=== PATIENT | male | born 1945 | race African-American/Black ===

== ENCOUNTER 2016-08-19 18:49 | Emergency (ER) | payer MEDICARE, OTHER ==
[~2016-08-19] VITALS: Ht 182.9 cm; Wt 78.0 kg
[~2016-08-19 18:49] MED LIST: ASPI-1159 PO; BUSP5TAB3 PO; CHOL500010 PO; CLON0.5T4 PO; FINA5TAB11 PO; GABA-531 PO; GADOBENATE DIMEGLUMINE 529 MG/ML 10ML IV ONE; IOHEXOL-300 100 ML BOTTLE ONE; LISI-604 PO; NAPR-679 PO; POTA10CA42 PO; PRAZ2CAP2 PO; SIMV20TA6 PO; SODIUM CHLORIDE 0.9% 10ML VIAL ONE
[2016-08-19] MEDS ORDERED: SODIUM CHLORIDE 0.9% 1,000 ML IV ONE (19:56)
[2016-08-19] MEDS ORDERED: ONDANSETRON HCL 4MG/2ML VIAL IV STA (19:56)
[2016-08-19] MEDS ORDERED: MORPHINE SULFATE 4 MG/ML CPJ (NOT FOR IM USE) IV STA (19:56)
[2016-08-19 20:28] LABS: BASOPHILS % 1.1 % (0.0-2.0); CARBON DIOXIDE 33 mEq/L (21-32); CHLORIDE 105 mEq/L (98-107); EOSINOPHILS % 2.4 % (0.0-5.0); HEMATOCRIT. 43.2 % (42.0-52.0); HEMOGLOBIN. 14.8 g/dL (14.0-18.0); MEAN CORPUSCULAR HEMOGLOBIN 33.7 pg (28.0-32.0); MEAN CORPUSCULAR VOLUME 98.1 fL (80.0-94.0); MEAN PLATELET VOLUME 7.5 fl (7.4-10.4); MONOCYTES % 8.9 % (2.0-8.0); NEUTROPHILS % 61.6 % (40.0-76.0); PLATELET 192 x1000/uL (130-400); RED CELL DISTRIBUTION WIDTH 13.3 % (11.6-14.6)
[2016-08-19 20:31] LABS: INR 1.1; PROTHROMBIN TIME 10.9 sec
[2016-08-19 21:08] LABS: CLARITY URINE CLEAR (CLEAR); COLOR URINE YELLOW (YELLOW); GLUCOSE URINE NEGATIVE (NEGATIVE); KETONES URINE TRACE (NEGATIVE); LEUKOCYTE ESTERASE URINE 2+ (NEGATIVE); NITRITE URINE NEGATIVE (NEGATIVE); OCCULT BLOOD URINE TRACE (NEGATIVE); PH URINE 6.5 (4.5-8.0); PROTEIN URINE TRACE (NEGATIVE); SPECIFIC GRAVITY URINE 1.027 (1.005-1.030)
[2016-08-19 22:45] VITALS: BP 166/101
[2016-08-19] MEDS ORDERED: POTASSIUM CHLORIDE INJ 40 MEQ in DEXT 5% WATER 250 ML IV SCH (23:30)
[2016-08-19] MEDS ORDERED: POTASSIUM CHLORIDE 20MEQ TABLET SR PO ONE (23:30)
== END 2016-08-20 00:17 | disposition home or self-care (01) ==
LOC: ER 19:57
DX: N39.0 Urinary tract infection, site not specified (principal); K56.7 Ileus, unspecified; I10 Essential (primary) hypertension; I51.9 Heart disease, unspecified; Z79.82 Long term (current) use of aspirin; F17.200 Nicotine dependence, unspecified, uncomplicated
CPT/HCPCS: 36415; 74177; 80053; 81001; 83690; 85025; 85610; 96361; 96374; 96375; 99285; A4216; A9577; J2270; J2405; J7030; Q9967; J3480; J7060